=== PATIENT | female | born 1940 | race Caucasian/White ===

== ENCOUNTER 2017-01-20 11:38 | Outpatient (CLI) | payer OTHER ==
[2013-12-14 10:17] VITALS: BP 113/82
[2017-01-20 12:48] LABS: eGFR (African) > 60; eGFR (Non-African) > 60
== END 2017-01-20 11:40 ==
LOC: LAB 11:38
PROVIDERS: ATTEND Family Medicine
DX: I10 Essential (primary) hypertension (principal); R73.09 Other abnormal glucose
CPT/HCPCS: 36415; 80053; 80061; 83036

== ENCOUNTER 2017-03-10 16:18 | Outpatient (CLI) | payer OTHER ==
[2013-12-14 10:17] VITALS: BP 113/82
== END 2017-03-10 16:20 ==
LOC: LABRHC 16:18
PROVIDERS: ATTEND Physician Assistant
DX: N30.01 Acute cystitis with hematuria (principal); R30.0 Dysuria
CPT/HCPCS: 87086; 87186

== ENCOUNTER 2017-03-31 12:03 | Outpatient (CLI) | payer OTHER ==
[2013-12-14 10:17] VITALS: BP 113/82
== END 2017-03-31 12:15 ==
LOC: LABRHC 12:03
PROVIDERS: ATTEND Physician Assistant
DX: R31.9 Hematuria, unspecified (principal); N95.0 Postmenopausal bleeding
CPT/HCPCS: 87086; 88148; G0143

== ENCOUNTER 2017-11-25 12:03 | Outpatient (CLI) | payer OTHER ==
[2013-12-14 10:17] VITALS: BP 113/82
[2017-11-25 14:04] LABS: eGFR (African) > 60; eGFR (Non-African) > 60
== END 2017-11-25 13:27 ==
LOC: LAB 12:03
PROVIDERS: ATTEND Family Medicine
DX: I10 Essential (primary) hypertension (principal)
CPT/HCPCS: 36415; 80053; 80061

== ENCOUNTER 2018-11-24 11:25 | Outpatient (CLI) | payer MEDICARE, OTHER ==
[2013-12-14 10:17] VITALS: BP 113/82
[2018-11-24 15:04] LABS: A1C 5.4 % (<5.7); HDL 48 mg/dL (>40); eGFR (Non-African) > 60
== END 2018-11-24 11:35 ==
LOC: LAB 11:25
PROVIDERS: ATTEND Family Medicine
DX: I10 Essential (primary) hypertension (principal); R73.9 Hyperglycemia, unspecified
CPT/HCPCS: 36415; 80053; 80061; 83036

== ENCOUNTER 2018-12-14 09:04 | Outpatient (CLI) | payer MEDICARE, OTHER ==
[2013-12-14 10:17] VITALS: BP 113/82
--- NOTE | 2018-12-15 10:02 | Diagnostic Imaging Report ---
BALA LAMB [facility] [id number] [id number] Report Submission Date: Dec 14, 2018 10:15:48 AM CDT Patient Study Name: EDMOND BYRD Date: Dec 14, 2018 12:00:00 AM CDT Modality Type: DEXA\OT Gender: F Description: DEXA : 44 Institution: [facility] Physician: BALA LAMB Examination: Bone density History: Assess bone mineralization Comparison exams: 30 September 2010 Technique: DEXA protocol Findings: Average bone mineral density from L1 through L4: 1.244 grams cm2. T score: 0.5 Average bone mineral density of the left femoral neck: 0.874 grams cm2. T score: -1.2 Average bone mineral density of the right femoral neck: 0.837 grams cm2. T score: -1.4 Impression: Normal lumbar spine mineralization for age Femoral neck osteopenia. Electronically signed on Dec 14, 2018 10:15:48 AM CDT by: Rohith NUNN
== END 2018-12-14 09:06 ==
LOC: RAD 09:04
PROVIDERS: ATTEND Family Medicine
DX: M81.0 Age-related osteoporosis without current pathological fracture (principal)
CPT/HCPCS: 77080

== ENCOUNTER 2018-12-30 09:09 | Emergency (ER) | payer MEDICARE, OTHER ==
[2018-12-30 09:25] VITALS: BP 143/57
--- NOTE | 2018-12-30 09:34 | ED Physician Documentation ---
Lower Extremity Problem - HPI Stated Complaint: R Ankle Pain Chief Complaint: Lower Extremity Problem Additional Information: Patient presents to ED with pain in right lateral foot since Wednesday (5 days ago). She states she was helping her son around his house on Wednesday and was on her feet more than usual. The following day both of her feet hurt in the ball area, however the left stopped hurting and the right continued to hurt. Yesterday she noticed some swelling in the right foot and redness on the right lateral side. Today the redness in gone but the pain and swelling persists. She has not other complaints. She was recently started on atorvastatin and wo nders if this is causing the pain. Location of Injury: R foot Onset: days ago (5) Timing: still present Duration: constant Where: home Severity: moderate Quality: pain, swelling Exacerbated By: walking Relieved By: rest Associated Symptoms: denies: chest pain, shortness of breath - ROS CONST: denies: fever MS/SKIN/LYMPH: denies: calf pain, leg swelling CVS/RESP: denies: chest pain, shortness of breath, cough GI/: none EYES/ENT: none NERUO/PSYCH: denies: headache - PAST HX Past History: none PE Risk Factors: none Surgeries/Procedures: none Allergies/Adverse Reactions: Allergies Allergy/AdvReac Type Severity Reaction Status Date / Time No Known Allergies Allergy Verified 12/30/18 09:24 Home Medications: Ambulatory Orders Medication Instructions Recorded Methylprednisolone [Medrol] 4 mg PO DIRECTED #1 tab.ds.pk 12/30/18 - SOCIAL HX Smoking History: non-smoker Alcohol Use: none Drug Use: none - FAMILY HX Family History: none - VITAL SIGNS Vital Signs: Vital Signs Temp Pulse Resp BP Pulse Ox 98.3 F 83 17 143/57 94 12/30/18 09:15 12/30/18 09:15 12/30/18 09:15 12/30/18 09:15 12/30/18 09:15 - REVIEWED ASSESSMENTS Nursing Assessment Reviewed: Yes Vitals Reviewed: Yes ED Results Lab/Radiology - Orders Orders: ED Orders Category Date Time Status FOOT 3 VIEWS OR MORE [RAD] Stat Exams 12/30/18 Completed Lower Extremity Problem - EXAM General Appearance: no distress Hips: bilateral hip: non-tender, normal inspection, normal range of motion, no evidence of injury Legs: bilateral: non-tender, normal inspection, normal range of motion, no evidence of injury Knees: bilateral: non-tender, normal inspection, normal range of motion, no evidence of injury Ankle: bilateral: non-tender, normal inspection, normal range of motion, no evidence of injury Foot: right foot: pain (right lateral foot), soft tissue tenderness, swelling, left foot: non-tender, normal inspection, normal range of motion, no evidence of injury Neuro/Tendon: normal sensation, normal motor functions EENT: VIKTOR RESPIRATORY: no resp distress, chest non-tender, breath sounds normal CVS: reg rate & rhythm, heart sounds normal JOINT: joints nml, nml ROM VASCULAR: no vascular compromise, pulses full/equal NEURO/PSYCH: oriented X3, CN's nml as tested, motor nml, sensation nml, mood/affect nml SKIN: warm/dry, normal color BACK: normal inspection Discharge Clincal Impression: Right foot pain Prescriptions: Methylprednisolone [Medrol] 4 mg PO DIRECTED #1 tab.ds.pk Referrals: Landry Bolaños MD [Primary Care Provider] - 2 Days Additional Instructions: 1. Start Medrol dose pack tomorrow, 12/31/18 2. Tylenol as needed for pain. Keep foot elevated while at rest. 3. A referral has been sent to Dr. Power, podiatry, his office will be calling with appointment information 4. Follow up with Dr. Bolaños within 1 week 5. Return to ER for new or worsening symptoms Condition: Stable Disposition: 01 HOME, SELF-CARE Decision to Admit: NO Date of Decison to Admit: 12/30/18 Decision Time: 10:08
--- NOTE | 2018-12-30 09:53 | Diagnostic Imaging Report ---
PATIENT MR#: [id number] PATIENT PATIENT NAME: EDMOND BYRD DATE OF : 1940 REFERRING PHYSICIAN: Oksana Hua EXAM DATE: 12/30/2018 ACCESSION NUMBER: [id number] EXAM DESCRIPTION: FOOT 3 VIEWS OR MORE Examination: Plain film right foot History: RT FOOT PAIN Findings: 3 views of the right foot demonstrates osteopenia. Articular degenerative changes. No fract ure or dislocation. Calcaneal spurs. No soft tissue swelling. No joint effusion. Impression: Osteopenia and degenerative changes. No acute appearing osseous abnormality. Read by: Dr. Rohith Tate Transcribed by: Transcribed Date: Electronically signed by: Dr. Rohith Tate Date signed: 12/30/2018 9:52:52 AM
[2018-12-30] MEDS ORDERED: methylPREDNISolone SOD SUCC 125 MG/2 ML VIAL IM ONE (10:00)
== END 2018-12-30 10:15 | disposition home or self-care (01) ==
LOC: ED 09:09
DX: M79.671 Pain in right foot (principal)
CPT/HCPCS: 73630; 96372; 99283; 99284; J2930

== ENCOUNTER 2019-01-23 09:41 | Outpatient (CLI) | payer MEDICARE, OTHER ==
--- NOTE | 2019-01-23 10:41 | Diagnostic Imaging Report ---
PATIENT MR#: [id number] PATIENT PATIENT NAME: EDMOND BYRD DATE OF : 1940 REFERRING PHYSICIAN: SCARLETT CROSS EXAM DATE: 01/23/2019 ACCESSION NUMBER: [id number] EXAM DESCRIPTION: FOOT 3 VIEWS OR MORE Exam: Right FOOT 3 VIEWS OR MORE Indication: ORDER STATES RT FOOT PAIN (Hx) / Note time : 01/23/2019 10:01:39 AM User : Eagle Dangelo ORDER STATES RT FOOT PAIN ------ (DICOM Hx) (DICOM Hx) Findings: No acute fracture, subluxation, or dislocation is identified. Spurs are present off the plantar and p osterior aspect of the calcaneus. If clinical symptoms persist follow up examination may be warranted to exclude an occult process. Impression: No acute osseous abnormality. Calcaneal spurs Read by: Dr. Enrico Gary Transcribed by: Transcribed Date: Electronically signed by: Dr. Enrico Gary Date signed: 01/23/2019 10:40:53 AM
== END 2019-01-23 09:51 ==
LOC: RAD 09:41
PROVIDERS: ATTEND Podiatrist Foot & Ankle Surgery
DX: M79.671 Pain in right foot (principal)
CPT/HCPCS: 73630

== ENCOUNTER 2019-02-09 08:51 | Outpatient (CLI) | payer MEDICARE, OTHER ==
--- NOTE | 2019-02-13 14:28 | OP Clinic Progress Note ---
DATE OF VISIT: 02/09/2019 SUBJECTIVE: Angeles is a 78-year-old female presenting to clinic today for followup of right foot pain. The patient had x-rays ordered without any sign of stress fracture or dislocation, right foot. An MRI was also performed and unfortunately she had tremors that we were not aware of that caused her to move quite a bit during the MRI and she was unable to get a good clear picture and her MRI unfortunately did not tell us much beside significant swelling and some deviation in the second and third toes from each other on the right foot. The patient understands this and we called her with results of the MRI previously and encouraged her to get the boot that we wanted her to be in. She ended up only getting a short boot unfortunately, but she is using it all times. She states that she was having some pain where the strap goes over the end of the forefoot causing pain in the area just proximal to the second and third metatarsal heads. She also is now having new pain on the head of the fifth metatarsal, right foot laterally. She does not admit to any other issues or concerns nor any fevers, chills, nausea, vomiting, shortness of breath or chest pain. She admits that she is doing ice daily as well. OBJECTIVE: Vitals: Temperature 97.3 degrees Fahrenheit, heart rate 87, respiration rate 18, blood pressure 117/43. O2 saturation is 96% on room air. Vascular: 2+ DP and PT pulses, right foot. Capillary refill time is less than 3 seconds to the toes of the right foot. There is mild edema noted in the distal forefoot, right near toes 2 and 3. Dermatologic: There is no dark discoloration at this time on the right forefoot at all. This has definitely improved. There is no erythema or ecchymosis or any of that noted at this time. There perhaps is very slight warmth to the touch at the area of the distal forefoot near the second and third metatarsal heads. Musculoskeletal: There is definite deviation of the second and third toes away from each other of the right foot. There is also pain on palpation noted dorsally and plantarly at the second intermetatarsal head space area. There is no pain with range of motion of the right second toe, but there is slight pain with range of motion of the right third toe MPJ. There were no other gross abnormalities noted. Neurologic: Light touch sensation is intact to the toes, right foot. There is negative tuning fork vibratory issues from previous exam. ASSESSMENT AND PLAN: 1. Acute pain of right foot, M79.671. 2. Possible neuroma, right foot second intermetatarsal space. 3. Painful fifth metatarsal head, right foot. PROCEDURE#1: We discussed the risks and benefits of the steroid injection into right second intermetatarsal space just proximal to the metatarsal head for a possible neuroma. These include, but are not limited to bleeding, infection and injury to tendon/rupture. The patient understands these risks and knows that we will go ahead and do the injection today and see if this brings any relief in the intermetatarsal space to see if this is possibly a neuroma. We are limited with other options for imaging, as the MRI did not work out well for her. This is a good diagnostic option to see if we have a neuroma causing her problem. If it is not then we will consider a steroid injection in the joints themselves perhaps joints 2 and 3 of the MPJ to see if that is where the problem lies. The patient understands that this is the plan going forward at this time. She is to continue using the boot and is to continue doing ice. Detail of procedure #1: 3 mL consisting of 1 mL of 2% lidocaine plain, 1 mL of 0.5% Marcaine plain, 0.5 mL of dexamethasone 4 mg/mL and 0.5 mL of Kenalog 40 mg/mL were injected into the right second intermetatarsal space just proximal to the metatarsal heads in the plantar area. The patient tolerated the procedure well. There was some bleeding, which was controlled with pressure. A Band-Aid was applied at that time. The patient tolerated the procedure well and did not have any relief of pain so far when she left the office today. We encouraged her to strap her boot strap on the forefoot less tightly and we will see how she is doing in three weeks from now in the [facility]. We will have her return to clinic in three weeks and sooner if needed. The patient has no other questions or concerns and appreciates the option. We will consider a steroid injection into the second and third MPJs if this is not helpful. Of note, the consent that was discussed above was given both verbally and by written consent and it was placed in the chart for a right second intermetatarsal space steroid injection. Carlos Power D.P.M. /[employer] [id number] & #[id number]/mab MTDD
== END 2019-02-09 09:20 ==
LOC: POD 08:51
PROVIDERS: ATTEND Podiatrist Foot & Ankle Surgery
DX: M79.671 Pain in right foot (principal)
CPT/HCPCS: 20600; 99213; G0463; J2001; J3301; J3490; A4554